=== PATIENT | male | born 1980 | race Caucasian/White ===

== ENCOUNTER 2018-01-27 08:54 | Emergency (ER) | payer OTHER ==
[~2018-01-27] VITALS: Ht 185.4 cm; Wt 93.0 kg
[2018-01-27 09:00] VITALS: BP 134/79; PULSE 85; RESP 20; TEMP 97.5; O2SAT 100
--- NOTE | 2018-01-27 09:29 | PD ---
HPI Chief Complaint: Alcohol/Drug Intoxication Time Seen by Provider: 09:07 Travel History International Travel<30 days: No Contact w/Intl Traveler<30days: No Traveled to known affect area: No History of Present Illness HPI This patient is an alcoholic who decided to quit drinking 2 days ago. He says he is in inpatient rehab bed that is lined up for tomorrow morning. He is felt a bit shaky and nauseous and has general malaise. No seizure activity. Symptom severity is moderate. No alleviating factors. Symptoms exacerbated by recent cutback of alcohol. He denies IV drug history. He does use cocaine. He is quit that as well. [facility] Social History Alcohol Use: Yes Tobacco Use: Yes Substance Use: Yes Allergies-Medications (Allergen,Severity, Reaction): Coded Allergies: No Known Allergies (Unverified , 01/27/18) Review of Systems General / Constitutional: No: Fever Eyes: No: Visual changes HENT: No: Headaches Cardiovascular: No: Chest Pain or Discomfort Respiratory: No: Shortness of Breath Gastrointestinal: Positive: Nausea, No: Abdominal Pain Genitourinary: No: Dysuria Musculoskeletal: No: Pain Skin: No Rash Neurologic: Positive: Tremor, No: Weakness Psychiatric: Positive: Anxiety, Substance Abuse, No: Depression Endocrine: No: Polydipsia Hematologic/Lymphatic: No: Easy Bruising Physical Exam Narrative GENERAL: Well-nourished, well-developed patient in no apparent distress. SKIN: Focused skin assessment reveals no rash and nodules. Skin is Warm and dry. HEAD: Atraumatic. Normocephalic. EYES: Pupils equal and round. No scleral icterus. No injection or drainage. ENT: No nasal bleeding or discharge. Mucous membranes pink and moist. NECK: Trachea midline. No JVD. CARDIOVASCULAR: Regular rate and rhythm. No murmur appreciated. RESPIRATORY: No accessory muscle use. Clear to auscultation. Breath sounds equal bilaterally. GASTROINTESTINAL: Abdomen soft, non-tender, nondistended. Hepatic and splenic margins not palpable. MUSCULOSKELETAL: No obvious deformities. No clubbing. No cyanosis. No edema. NEUROLOGICAL: Awake and alert. No obvious cranial nerve deficits. Motor grossly within normal limits. Normal speech. PSYCHIATRIC: Anxious mood and affect; insight and judgment poor . Data Data Last Documented VS Vital Signs Date Time Temp Pulse Resp B/P (MAP) Pulse Ox O2 Delivery O2 Flow Rate FiO2 6/7/18 09:00 97.5 85 20 134/79 (97) 100 Orders Orders Chlordiazepoxide (Librium) (01/27/18 09:30) Ondansetron Odt (Zofran Odt) (01/27/18 09:30) [facility] Medical Decision Making Medical Screen Exam Complete: Yes Emergency Medical Condition: Yes Medical Record Reviewed: Yes Differential Diagnosis Alcohol withdrawal, gastroenteritis, anxiety Narrative Course I have reviewed the patient's electronic medical record. Gave him a dose of Zofran and Librium Presentation consistent with some mild alcohol withdrawal symptoms. No objective findings on exam. He has a rehab bed for tomorrow morning. I do not think he needs extensive workup for inpatient care at this point. I wrote him a prescription for the above 2 medications Diagnosis Primary Impression: Alcohol withdrawal Qualified Codes: F10.239 - Alcohol dependence with withdrawal, unspecified Additional Instructions: The patient was advised to follow up with their physician and return if they worsen. The patient was warned about potential sedation for the medications they will receive on prescription. Med/Other Pt SpecificInfo: Prescription(s) given Disposition: DISCHARGE HOME Condition: Stable Giacomo Mccall MD Jan 27, 2018 09:29
[2018-01-27] MEDS ORDERED: chlordiazePOXIDE 25 MG CAP PO ONE (09:30)
[2018-01-27] MEDS ORDERED: ONDANSETRON ODT 4 MG TAB PO ONE (09:30)
[2018-01-27] MEDS ORDERED: ZOFR4TAB PO (11:10)
== END 2018-01-27 11:50 | disposition home or self-care (01) ==
LOC: NEPC 08:54
DX: F10.239 Alcohol dependence with withdrawal, unspecified (principal); R11.0 Nausea; R53.81 Other malaise; R25.1 Tremor, unspecified; Z72.0 Tobacco use
CPT/HCPCS: 99283

== ENCOUNTER 2018-02-10 09:13 | Emergency (ER) | payer SELFPAY ==
[~2018-02-10] VITALS: Ht 182.9 cm; Wt 90.0 kg
[~2018-02-10 09:13] MED LIST: ZOFR4TAB PO
[2018-02-10 09:15] VITALS: BP 128/69; PULSE 84; RESP 16; TEMP 97.4; O2SAT 98
[2018-02-10] MEDS ORDERED: QUET1TAB8 PO (09:51)
[2018-02-10] MEDS ORDERED: CLON0.1T PO (09:51)
[2018-02-10] MEDS ORDERED: ABIL10TA8 PO (09:51)
[2018-02-10 09:59] VITALS: RESP 22; O2SAT 100
--- NOTE | 2018-02-10 09:59 | PD ---
HPI Chief Complaint: Respiratory Symptoms Time Seen by Provider: 09:43 Travel History International Travel<30 days: No Contact w/Intl Traveler<30days: No Traveled to known affect area: No History of Present Illness HPI Patient is a 37 year old male presents to the ER for evaluation of syncopal episode. patient currently 19 days sober from cocaine and alcohol. States he was hanging sconces and the next thing he knew he was on the floor. States this happened once before to him. He did not seek medical attention at that time. He has no history of HTN, nor HLD, nor Family history of CAD. He is a smoker. States pain is minimal, associated with SOB, no radiation, started this morning. PFSH Past Medical History Anxiety: Yes Diminished Hearing: No Hypertension: Yes Neurologic: Yes (TBI) Psychiatric: Yes (border line personality disorder, "anger issues" from head trauma ) Tetanus Vaccination: > 5 Years Influenza Vaccination: No Past Surgical History Other Surgery: Yes (UNKNOWN TYPE OF BRAIN SX?) Social History Alcohol Use: Yes Tobacco Use: Yes Substance Use: Yes Allergies-Medications (Allergen,Severity, Reaction): Coded Allergies: No Known Allergies (Unverified , 02/10/18) Reported Meds & Prescriptions Reported Meds & Active Scripts Active Reported Abilify (Aripiprazole) 10 Mg Tab 10 Mg PO HS Quetiapine (Quetiapine Fumarate) 100 Mg Tab 100 Mg PO HS Clonidine (Clonidine HCl) 0.1 Mg Tab 0.1 Mg PO TID Review of Systems Except as stated in HPI: all other systems reviewed are Neg Physical Exam Narrative GENERAL: WD/WN in nad. SKIN: Warm and dry. Early sunburn on both shoulders. HEAD: Atraumatic. Normocephalic. EYES: Pupils equal and round. No scleral icterus. No injection or drainage. ENT: No nasal bleeding or discharge. Mucous membranes pink and moist. NECK: Trachea midline. No JVD. CARDIOVASCULAR: Regular rate and rhythm. No MGR. 2+ bilaterally equal pulses in all four ext. RESPIRATORY: No accessory muscle use. Clear to auscultation. Breath sounds equal bilaterally. GASTROINTESTINAL: Abdomen soft, non-tender, nondistended. Hepatic and splenic margins not palpable. MUSCULOSKELETAL: Extremities without clubbing, cyanosis, or edema. No obvious deformities. NEUROLOGICAL: Awake and alert. No obvious cranial nerve deficits. Motor grossly within normal limits. Five out of 5 muscle strength in the arms and legs. Normal speech. PSYCHIATRIC: Appropriate mood and affect; insight and judgment normal. Data Data Last Documented VS Vital Signs Date Time Temp Pulse Resp B/P (MAP) Pulse Ox O2 Delivery O2 Flow Rate FiO2 02/10/18 09:59 22 100 Room Air 02/10/18 09:15 97.4 84 128/69 (88) Orders Orders Electrocardiogram (02/10/18 ) Basic Metabolic Panel (Bmp) (02/10/18 09:53) Ckmb (Isoenzyme) Profile (02/10/18 09:53) Complete Blood Count With Diff (02/10/18 09:53) Magnesium (Mg) (02/10/18 09:53) Prothrombin Time / Inr (Pt) (02/10/18 09:53) Act Partial Throm Time (Ptt) (02/10/18 09:53) Troponin I (02/10/18 09:53) Chest, Single Ap (02/10/18 09:53) Ecg Monitoring (02/10/18 09:53) Iv Access Insert/Monitor (02/10/18 09:53) Oximetry (02/10/18 09:53) Oxygen Administration (02/10/18 09:53) Sodium Chloride 0.9% Flush (Ns Flush) (02/10/18 10:00) Aspirin Chew (Aspirin Chew) (02/10/18 10:00) Ed Discharge Order (02/10/18 10:57) Labs Laboratory Tests Test 02/10/18 09:51 White Blood Count 6.3 TH/MM3 Red Blood Count 5.43 MIL/MM3 Hemoglobin 17.8 GM/DL Hematocrit 51.8 % Mean Corpuscular Volume 95.3 FL Mean Corpuscular Hemoglobin 32.7 PG Mean Corpuscular Hemoglobin Concent 34.3 % Red Cell Distribution Width 13.6 % Platelet Count 183 TH/MM3 Mean Platelet Volume 9.3 FL Neutrophils (%) (Auto) 51.5 % Lymphocytes (%) (Auto) 31.8 % Monocytes (%) (Auto) 11.6 % Eosinophils (%) (Auto) 4.5 % Basophils (%) (Auto) 0.6 % Neutrophils # (Auto) 3.2 TH/MM3 Lymphocytes # (Auto) 2.0 TH/MM3 Monocytes # (Auto) 0.7 TH/MM3 Eosinophils # (Auto) 0.3 TH/MM3 Basophils # (Auto) 0.0 TH/MM3 CBC Comment DIFF FINAL Differential Comment Prothrombin Time 11.0 SEC Prothromb Time International Ratio 1.1 RATIO Activated Partial Thromboplast Time 30.5 SEC Blood Urea Nitrogen 10 MG/DL Creatinine 1.06 MG/DL Random Glucose 90 MG/DL Calcium Level 8.8 MG/DL Magnesium Level 2.0 MG/DL Sodium Level 139 MEQ/L Potassium Level 3.7 MEQ/L Chloride Level 107 MEQ/L Carbon Dioxide Level 24.1 MEQ/L Anion Gap 8 MEQ/L Estimat Glomerular Filtration Rate 78 ML/MIN Total Creatine Kinase 62 U/L Troponin I LESS THAN 0.02 NG/ML MDM Medical Decision Making Medical Screen Exam Complete: Yes Emergency Medical Condition: Yes Differential Diagnosis Syncope, acs, ami, anemia, arrythmia, dehydration. Narrative Course Patient roomed in ER. Initial workup negative. He thinks he just has anxiety. Nursing approached me during his workup stating patient wants to leave as he has to get to work. Discussed with patient that with his syncope i cannot completely reassure him but he is young. Discussed his risk factors including smoking and substance abuse and discussed cessation of smoking and continued cessation of substances. Discussed observation status for syncope and he wants to leave. Discussed he needs to follow up with PCP or [facility]. Also discussed syncope precautions and fall precautions. Currently he appears atraumatic and no indication for imaging. Discussed return to ed criteria. Diagnosis Primary Impression: Chest pain Qualified Codes: R07.9 - Chest pain, unspecified Referrals: [facility] Disposition: 01 DISCHARGE HOME Condition: Stable Mohit Dong MD Feb 10, 2018 09:59
[2018-02-10] MEDS ORDERED: ASPIRIN 81 MG CHEW TAB CHEW ONE (10:00)
[2018-02-10] MEDS ORDERED: SODIUM CHLORIDE 0.9% FLUSH 10 ML FLUSH IVF PRN (10:00)
[2018-02-10 10:15] LABS: AUTOMATED NEUTROPHIL # 3.2 TH/MM3 (1.8-7.7); BASOPHIL % 0.6 % (0.0-2.0); EOSINOPHIL # 0.3 TH/MM3 (0-0.4); EOSINOPHIL % 4.5 % (0.0-4.0); HEMATOCRIT 51.8 % (39.0-51.0); HEMOGLOBIN 17.8 GM/DL (13.0-17.0); LYMPH % 31.8 % (9.0-44.0); MEAN CELL VOLUME 95.3 FL (80.0-100.0); MEAN CORPUSCULAR HEMOGLOBIN 32.7 PG (27.0-34.0); MEAN CORPUSCULAR HGB CONC 34.3 % (32.0-36.0); MEAN PLATELET VOLUME 9.3 FL (7.0-11.0); MONO % 11.6 % (0.0-8.0); MONOCYTE # 0.7 TH/MM3 (0-0.9); NEUT % 51.5 % (16.0-70.0); PLATELET COUNT 183 TH/MM3 (150-450); RED BLOOD COUNT 5.43 MIL/MM3 (4.50-5.90); RED CELL DISTRIBUTION WIDTH 13.6 % (11.6-17.2); WHITE BLOOD COUNT 6.3 TH/MM3 (4.0-11.0)
--- NOTE | 2018-02-10 10:20 | RADRPT ---
EXAM DATE: 02/10/2018 10:13 AM EDT AGE/SEX: 37 years / Male INDICATIONS: Syncopal episode today. Short of breath. CLINICAL DATA: This is the patient's initial encounter. Patient reports that signs and symptoms have been present for 1 day and indicates a pain score of 0/10. MEDICAL/SURGICAL HISTORY: Hypertension. None. COMPARISON: No prior exams available for comparison. FINDINGS: The cardiac and mediastinal contours are within normal limits. The lungs are clear. The visualized os seous structures demonstrate previous plating of the right clavicle. The bony structures appear intac t. CONCLUSION: No acute cardiopulmonary findings identified. Electronically signed by: Jarret Vizcarra MD 02/10/2018 10:18 AM EDT
[2018-02-10 10:24] LABS: INTERNATIONAL NORMALIZED RATIO 1.1 RATIO
[2018-02-10 10:42] LABS: BICARBONATE 24.1 MEQ/L (21.0-32.0); BLOOD UREA NITROGEN 10 MG/DL (7-18); CALCIUM 8.8 MG/DL (8.5-10.1); CHLORIDE 107 MEQ/L (98-107); CREATININE 1.06 MG/DL (0.60-1.30); GLOMERULAR FILTRATION RATE 78 ML/MIN (>89); GLUCOSE,RANDOM 90 MG/DL (74-106); SODIUM (NA) 139 MEQ/L (136-145)
[2018-02-10 10:48] LABS: TROPONIN I LESS THAN 0.02 NG/ML (0.02-0.05)
--- NOTE | 2018-02-10 17:44 | EKG ---
Date Performed: 02/10/2018 Time Performed: 09:47:49 PTAGE: 37 years EKG: Sinus rhythm NORMAL ECG NO PREVIOUS TRACING DOCTOR: Angela Kelly Interpretating Date/Time 02/10/2018 17:41:41
== END 2018-02-10 11:08 | disposition home or self-care (01) ==
LOC: NEPD 09:13
DX: R07.9 Chest pain, unspecified (principal); F41.9 Anxiety disorder, unspecified; F10.11 Alcohol abuse, in remission; F14.10 Cocaine abuse, uncomplicated; I10 Essential (primary) hypertension; F60.3 Borderline personality disorder; Z79.899 Other long term (current) drug therapy; Z72.0 Tobacco use; Z87.820 Personal history of traumatic brain injury
CPT/HCPCS: 71045; 80048; 82550; 83735; 84484; 85025; 85610; 85730; 93005; 99285